=== PATIENT | female | born 2000 | race Caucasian/White ===

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

== ENCOUNTER 2023-07-20 18:40 | Emergency (ER) | payer MEDICAID, OTHER ==
[~2023-07-20] VITALS: Ht 157.5 cm; Wt 49.1 kg
[2023-07-20 18:53] VITALS: BP 118/66; PULSE 81; RESP 18; TEMP 97.9; O2SAT 99
[2023-07-20 19:09] VITALS: O2SAT 99
[2023-07-20] MEDS: BACITRACIN OINT 500 UNITS/GM PKT TP ONE (19:27)
[2023-07-20] MEDS ORDERED: IBUP-2213 PO (19:45)
[2023-07-20] MEDS ORDERED: BACI-418 TP (19:45)
== END 2023-07-20 19:58 | disposition home or self-care (01) ==
LOC: MED 18:40
DX: T24.121A Burn of first degree of right knee, initial encounter (principal); T31.0 Burns involving less than 10% of body surface; X08.8XXA Exposure to other specified smoke, fire and flames, initial encounter; Y93.89 Activity, other specified; Y92.89 Other specified places as the place of occurrence of the external cause; Y99.8 Other external cause status
CPT/HCPCS: 16020; 90471; 90715; 99283